=== PATIENT | female | born 1970 | race Caucasian/White ===

== ENCOUNTER 2018-03-22 12:57 | Day surgery (SDC) | payer MEDICAID, SELFPAY ==
[2018-03-22 13:23] VITALS: BP 119/83; PULSE 83; RESP 16; TEMP 35.3; O2SAT 99
[2018-03-22] MEDS: Lactated Ringers 1,000 ML 80 ML IV (14:15)
--- NOTE | 2018-03-22 14:30 | DI.RAD_ITS ---
SYMPTOMS/DIAGNOSIS: RT ANKLE FRACTURE C-ARM FLUOROSCOPY OF THE RIGHT ANKLE: Fluoroscopy Time: 38.1 sec Fluoroscopy was provided in the OR for Dr. Mera. Hardcopy images show placement of a screw and plate fixation over the lateral malleolus and two screws within the medial malleolus. The alignment appears anatomic.
[2018-03-22] MEDS: Bupivacaine 0.5% Pres-Free 30 ML VIAL (14:51)
--- NOTE | 2018-03-22 15:07 | PDOC.DSDIS_ITS ---
Discharge Plan Disposition Patient Disposition: HOME Condition: Good Discharge Details Reason For Visit: R Ankle Fracture Attending Provider: Trevor Mera Primary Care Provider: Karla Wyman Home Meds and New Rx's Prescriptions: New acetaminophen 500 mg capsule 1,000 mg PO Q8H PRN (Reason: pain) Qty: 90 RF: 0 Changed ibuprofen 800 mg Tablet 800 mg PO Q8H PRN PRNQty: 90 RF: 0 oxycodone 5 mg tablet 5 mg PO Q4H MDD 30mg PRN (Reason: pain) Qty: 0 RF: 0 Discontinued hydrocodone-acetaminophen 5-325 mg tablet 1 tab PO Q4H MDD 30mg PRN (Reason: pain) Qty: 14 RF: 0 Discharge Instructions Additional Instructions: Activity: You are NON WEIGHT BEARING. You should keep the leg elevated as much as possible. You may wiggle your toes and move your hip and knee. Dressings: You should keep your splint clean and dry. Do NOT get wet or dirty. If you have issues with your splint, please call and ask for Dr. Mera. Medications: - You should take Tylenol and Ibuprofen around the clock for baseline pain. - You have been prescribed a stronger narcotic for breakthrough pain. - You should take a Baby Aspirin (81mg) twice a day for blood clot prevention. Follow-up: 2 weeks Referrals: Trevor Mera MD [ [facility] STAFF PHYSICIAN] - Equipment/Supplies: Sling Activity:: Elevate Remove Dressings/Wound Care:: Do Not Remove Shower/Bathe:: Cover Diet:: As Tolerated Discharge Orders Discharge Orders: Discharge Order (Routine); Ordered 03/22/18 Ordered By: Trevor Mera DS: Diagnosis Discharge Diagnosis (1) Closed right trimalleolar fracture: Status: Acute
[2018-03-22 16:55] VITALS: BP 126/69; PULSE 74; RESP 11; TEMP 36.5; O2SAT 95
[2018-03-22 17:00] VITALS: BP 116/80; PULSE 77; RESP 12; TEMP 36.5; O2SAT 97
[2018-03-22 17:05] VITALS: BP 118/77; PULSE 77; RESP 15; TEMP 36.5; O2SAT 979
[2018-03-22] MEDS: fentaNYL 100 MCG/2 ML VIAL IVP (17:05)
[2018-03-22 17:24] VITALS: BP 123/71; PULSE 74; RESP 15; TEMP 36.5; O2SAT 96
[2018-03-22 17:40] VITALS: BP 119/74; PULSE 77; RESP 13; TEMP 36.6; O2SAT 97
--- NOTE | 2018-03-23 17:58 | ROE_ITS ---
DATE OF SURGERY: March 22, 2018 PREOPERATIVE DIAGNOSIS: Right trimalleolar ankle fracture. POSTOPERATIVE DIAGNOSIS: Right trimalleolar ankle fracture. SURGERY: Open reduction and internal fixation of the right trimalleolar ankle fracture, fixation of medial malleolus and lateral malleolus. SURGEON: Trevor Mera M.D. 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 ANESTHESIA: General with popliteal and saphenous nerve blocks. ESTIMATED BLOOD LOSS: 20 cc COMPLICATIONS: None. DISPOSITION: The patient was awakened from anesthesia and taken to the PACU in a stable condition. INDICATION FOR PROCEDURE: Kathy is 47-year-old who had an unfortunate slip on the ice about a week o r so ago. She was seen immediately at [facility] in [place] where she was diagnosed with a closed trimalleolar ankle fracture with complete dislocation of the talus. A reduction was perfor med and she was placed in a splint. She has been at home elevating it. I evaluated her the day befo re in the office which showed significant resolution of her swelling and healthy skin for the support of surgery. Given the unstable nature of this injury, I did offer operative fixation. I reviewed t he risks of the procedure to include bleeding, infection, pain, stiffness, malunion, nonunion, damage to nerves and vessels, hardware failure, hardware prominence, need for repeat procedure, and blood c lot. Despite these risks, she elected to proceed. PROCEDURE DESCRIPTION: Kathy was greeted in the preoperative holding area. Her identity was confirm ed. The correct side was identified and marked. The consent was reviewed with the patient and medardo d. The History and Physical was updated. She was taken back to the PACU where a popliteal saphenous blo ck was administered. After successful administration of this block, she was taken to the Operating R oom. A general anesthetic was given. Prophylactic antibiotics in the form of cefazolin were adminis tered. The right leg was prepped with ChloraPrep, draped in a standard fashion, and placed onto a martell ne foam leg neal. A time-out was performed for safe surgery. No tourniquet was used during the case. The medial injury was approached first. A curvilinear incis ion was made over the medial malleolus. Immediately we had excellent visualization of the fracture s ite. The fracture edges were cleaned off and a curette was used to remove any clotted material for b anna visualization. There was no comminution and there was a clean fracture line seen. The fractur e was spread open and the ankle was distracted to show the ankle joint. This was washed out thorough ly. There were no loose bodies. There was no apparent talar dome damage. We then turned our attention to the lateral side of the ankle. A longitudinal incision was made over the posterior border of the lateral malleolus and distal fibula. This was taken sharply through the skin. Careful attention was paid for any branch of the superior peroneal nerve proximally but none were encountered. The fracture site was easily visible. The periosteum was incised and using both a knife and a periosteal elevator I was able to expose the fracture fragments. There was one primary oblique fracture running from superior-posterior to distal-anterior. This was clamped in a reduced p osition. X-rays were used to show that the fracture appeared to be reduced both visually within the wound and also with the x-rays with no apparent gapping around the distal fibula. A lag screw was th en placed in this fracture fragment. The proximal portion was drilled with a 3.5-mm hole and the dis shailesh cortex was drilled with a 2.5-mm hole. A 3.5-mm screw was placed. The screw was placed with exc ellent fixation. X-rays were taken. However, I noted that this must have broken out some of the fra cture and it was not as good and as stable a fracture fixation as I would have liked. However, it wa s holding the fracture mostly reduced. An accessory clamp was placed to stabilize it while the plate was placed. An 8-hole one-third tubular locking plate was then placed over the lateral fibula. The distal aspect was contoured for the curve of the lateral malleolus. A nonlocking screw was placed f irst within the distal fragment which brought the plate down onto the bone for a nice fit. I then pl aced two locking screws in the distal aspect of the plate, making sure not to violate the tibiotalar joint or the syndesmosis. The plate was felt to be one the bone and a K-wire was used to hold it in position to confirm on the lateral that the plate was centered on the fibula. The x-ray also at that time showed we had an accurate reduction of the fibula both in the AP and the lateral. I then place d three cortical screws proximally. These were bicortical screws with excellent fixation. This secu red the plate. All bony clamps were then removed. X-rays were used to show excellent reduction of t he fracture fragments. I then turned attention to the medial side. Two K-wires from the 3.5-mm cannulated screw system were used to stabilize the medial fragment. Redu ction was maintained with a dental pick and with foot manipulation. We had excellent reduction visua lly on the medial malleolar fragment. The two K-wires were placed across the fracture site and went into the tibia. Once confirmed to be in a good position on the x-ray, these were drilled on the near side and then a 50-mm 3.5-mm cannulated screw was placed through each hole, one at a time. This had excellent compression and the fracture was noted to be well reduced. On the x-ray there was also no alison to be some very thin fragments off the posterior aspect of the fibula. I used a #2 FiberWire to help cerclage those fragments onto the posterior aspect of the distal fibula. The wound was then tho roughly irrigated. No tourniquet was used. The periosteum was closed over the plate as best could be done. The tissue was closed with #3-0 Vicr yl. The skin was closed with #3-0 nylon. The medial side was closed with #2-0 Vicryl followed by a #3-0 nylon. There was no excessive bleeding. The wounds were dressed with Xeroform, 4x4s, ABDs, Web ril, and a short leg well-padded splint. At the end of the case all counts were correct. She was transferred to the PACU in a stable condition.
== END 2018-03-22 18:25 | disposition home or self-care (01) ==
PROVIDERS: PCP Family Medicine; Visit Provider Student in an Organized Health Care Education/Training Program
PROC: (CPT 27822; principal; 2018-03-22 14:15)
DX: S82.851A Displaced trimalleolar fracture of right lower leg, initial encounter for closed fracture (principal); W00.0XXA Fall on same level due to ice and snow, initial encounter; X50.0XXA Overexertion from strenuous movement or load, initial encounter; G89.18 Other acute postprocedural pain
CPT/HCPCS: 27822; C1713; 76942; 81025; 73600; J0690; J1100; J2250; J2405; J3010

== ENCOUNTER 2018-04-06 15:07 | Outpatient (CLI) | payer MEDICAID, SELFPAY ==
--- NOTE | 2018-04-06 14:58 | DI.RAD_ITS ---
SYMPTOM/DIAGNOSIS: S/P ORIF FOR TRIMALLEOLAR ANKLE FX RIGHT ANKLE: Three views. Comparison is made with 03/22/18. There is again seen internal fixation of the distal right tibial and fibular fractures. There has been no change in alignment of the orthopedic hardware or fracture components. The patient's lower leg is in a cast.
== END 2018-04-06 15:27 ==
PROVIDERS: PCP Family Medicine; Visit Provider Physician Assistant
DX: S82.851D Displaced trimalleolar fracture of right lower leg, subsequent encounter for closed fracture with routine healing (principal)
CPT/HCPCS: 73610

== ENCOUNTER 2018-05-04 15:24 | Outpatient (CLI) | payer MEDICAID, SELFPAY ==
--- NOTE | 2018-05-04 14:49 | DI.RAD_ITS ---
SYMPTOMS/DIAGNOSIS: F/U OPEN REDUCTION AND INTERNAL FIXATION OF RIGHT ANKLE RIGHT ANKLE: Three views. Comparison is 04/06/18. The patient's cast has been removed. There are again seen a sideplate and screws transfixing the fractures of the distal right tibia and fibula. There has been no change in alignment of the orthopedic hardware or fracture components compared to the prior examinations. No new fracture or dislocation is present.
== END 2018-05-04 15:44 ==
PROVIDERS: PCP Family Medicine; Visit Provider Physician Assistant
DX: S82.851D Displaced trimalleolar fracture of right lower leg, subsequent encounter for closed fracture with routine healing (principal)
CPT/HCPCS: 73610

== ENCOUNTER 2018-06-29 13:49 | Outpatient (CLI) | payer MEDICAID, SELFPAY ==
--- NOTE | 2018-06-29 13:45 | DI.RAD_ITS ---
SYMPTOM/DIAGNOSIS: F/U ANKLE ORIF RIGHT ANKLE: Three views were obtained and show a previously described fixation of fractures of the distal tibia and fibula with no gross interval change in alignment in comparison with examination of 05/04/18.
== END 2018-06-29 14:09 ==
PROVIDERS: PCP Family Medicine; Visit Provider Student in an Organized Health Care Education/Training Program
DX: Z87.81 Personal history of (healed) traumatic fracture (principal); Z96.7 Presence of other bone and tendon implants; S82.851D Displaced trimalleolar fracture of right lower leg, subsequent encounter for closed fracture with routine healing
CPT/HCPCS: 73610